=== PATIENT | female | born 1975 | race Hispanic/Latino ===

== ENCOUNTER 2017-06-02 10:09 | Observation (INO) | payer OTHER ==
[2017-06-02] VITALS (20 sets, daily range): BP systolic 110–130; BP diastolic 59–76
[~2017-06-02] VITALS: Ht 160 cm; Wt 83.5 kg
[~2017-06-02 10:09] MED LIST: CORTISPORIN OTI10 ML AD
--- NOTE | 2017-06-02 10:45 | NUR ---
PT ARRIVED ON UNIT AMBULATORY FROM DR. CHOWDHURY WITH ORDERS IN HAND FOR INDUCTION OF LABOR. SHE STATES THAT SHE HAS NO MEDICAL PROBLEMS. PN RECORDS ARE AVAILABLE. DATING IS 39 6/7 WK BY 9 WK U/S/. SHE IS 42 YEARS OLD AND HER LAST BABY WAS BORN IN 2004. SHE IS ACCOMPANIED BY HER TEEN DAUGTHER. PT UNDERSTANDS SOME IRISH BUT SPEAKS PRIMARILY ARMENIAN. PT ENCOURAGED TO ASK FOR DROP HAMMER SETTER UP NEEDED. SHE HAD A NEGATIVE QUAD SCREEN. REVIEW OF PN RECORD SHOWS THAT SHE IS O+ RUBELLA IMMUNE AND GBS NEGATIVE. SHE HAD U/S AT 20 WKS SHOWING LOW-LYING PLACENTA AND DR. CUI WILL BE CONSULTED THERE IS NO RECORD OF A LATER U/S. PT REPORTS THAT THERE HAS BEEN NO BLEEDING AT ANY TIME DURING THE . FETUS IS VERTEX, BALLOTABLE IN LOT POSITION BY MING'Sherita. DISCUSSED POSSIBILITY OF UNRIPE CERVIX AND THAT INDUCTION OF LABOR IS NOT ALWAYS IMMEDIATELY EFFECTIVE. PT AND DAUGHTER EXPRESS UNDERSTANDING.
--- NOTE | 2017-06-02 11:20 | NUR ---
PT HAS MULTIPLE VARICES IN LOWER EXTREMITIES AND VULVA. NONE ARE RED OR INFLAMMED. NO PAIN PER PT. KASIA'S NEGATIVE
[2017-06-02 11:22] LABS: URINE BILIRUBIN - DIPSTICK NEGATIVE (NEGATIVE); URINE BLOOD DIPSTICK NEGATIVE (NEGATIVE); URINE CLARITY CLEAR; URINE COLOR YELLOW; URINE GLUCOSE - DIPSTICK NEGATIVE (NEGATIVE); URINE KETONE NEGATIVE (NEGATIVE); URINE LEUK ESTERASE TRACE (NEGATIVE); URINE NITRITE - DIPSTICK NEGATIVE (Negative); URINE PROTEIN - DIPSTICK NEGATIVE (NEG-TRACE); URINE SPECIFIC GRAVITY 1.015; URINE UROBILINOGEN - DIPSTICK 0.2 E.U./dL (0.2)
[2017-06-02 11:38] LABS: BARBITURATES NEGATIVE (NEGATIVE); COCAINE NEGATIVE (NEGATIVE); METHADONE NEGATIVE (NEGATIVE); OXCYCODONE NEGATIVE (NEGATIVE); TETRAHYDROCANNABIONOL NEGATIVE (NEGATIVE); TRICYLIC ANTIDEPRESSANTS NEGATIVE (NEGATIVE)
--- NOTE | 2017-06-02 11:45 | NUR ---
PITOCIN STARTED AT 2 MU PER ORDERS AND AFTER PLAN OF CARE EXPLAINED TO PT AND UNDERSTANDING EXPRESSSED. NOVII WIRELESS MONITOR WORKING WELL SO PT WILL AMBULATE
--- NOTE | 2017-06-02 11:45 | NUR ---
PITOCIN BEGUN AT 2.0MU. WIRELESS NOVII WORKING WELL AND PT WISHES TO AMBULATE. ACUNA'S SCORE ONLY 5. AWARE
[2017-06-02 11:56] LABS: ALBUMIN 3.2 g/dL (3.2-5.0); ALKALINE PHOSPHATASE 118 u/l (38-126); ANION GAP 12 (6-22 (CALC)); BILIRUBIN, TOTAL 0.4 mg/dL (0.0-1.4); BUN 9 mg/dL (7-17); BUN/CREATININE RATIO 19 (12-20 (CALC)); CALCIUM 8.8 mg/dL (8.4-10.2); CARBON DIOXIDE 22 mmol/l (22-30); CHLORIDE 105 mmol/l (95-108); CREATININE 0.5 mg/dL (0.5-1.0); GFR > 60 ML/MIN (>=60 (CALC)); GFR FOR AFR.AMER. > 60 ML/MIN (>=60 (CALC)); GLUCOSE 90 mg/dL (65-105); POTASSIUM 4.3 mmol/l (3.5-5.1); SGOT/AST 19 u/l (14-36); SGPT/ALT 29 u/l (9-52); SODIUM 135 mmol/l (137-146); TOTAL PROTEIN 6.3 g/dL (6.3-8.2)
[2017-06-02 12:05] LABS: HEMATOCRIT 36.1 % (37.0-47.0); IMMATURE GRANULOCYTES 0.4 % (0.0-1.0); MEAN CELL VOLUME 84.1 fL CALC (80.0-100.0); MEAN CORPUSCULAR HGB CONC 33.2 g/L CALC (32.0-36.0); NEUT# 6.11 thou/uL (2.00-7.15); RED BLOOD COUNT 4.29 mill/uL (4.20-5.60); RED CELL DISTRI WIDTH 14.2 % (11.5-15.5)
--- NOTE | 2017-06-02 12:20 | NUR ---
WIRELESS MONITOR SKIPPING. FHT AUDIBLE AT 140. PT REQUESTS TO CONTINUE WIRELESS MONITOR. EXPLAINED THAT WE WILL HAVE TO HAVE IT RECORDING WITH USE OF PITOCIN
--- NOTE | 2017-06-02 12:29 | NUR ---
PT DISCUSSED EPIDURAL WITH Mo GAR RN IN EGYPTIAN SHE HAS HAD FOR HER OTHER DELIVERIES. EXPLAINED TO PT THAT ANESTHESIA WILL BE ALERTED BUT EPIDURAL NOT RECOMMENDED UNTIL ACTIVE LABOR AND WHEN SHE IS ADMITTED.
--- NOTE | 2017-06-02 12:42 | NUR ---
WIRELESS NOVII NOT PICKING UP. PT CURRENTLY IN CHAIR WITH EXTERNAL TRANSDUCER PICKING UP FHT WITHOUT DIFFICULTY. PT REQUESTS TO USE WIRELESS AGAIN IF POSSIBLE SO PADS REMAIN ON. PT IS AWARE THAT SOMETIMES THE PATCHES CAUSE SOME SKIN IRRITATION.
--- NOTE | 2017-06-02 13:10 | NUR ---
U/S DONE FOR PLACENTAL LOCATION. PLACENTA FUNDAL, NOT LOW LYING. FETUS VERTEX
--- NOTE | 2017-06-02 13:54 | NUR ---
DR. CUI HERE AND SPOKE WITH PT. HE PLANS TO REEVALATE AT 1800 OR PRN AND PT IS AWARE INDUCTION MY BE INEFFECTIVE IF HER BODY IS NOT READY
--- NOTE | 2017-06-02 14:03 | NUR ---
PT VISITING WITH FAMILY AND WATCHING TV, NO SX OF DISTRESS. FEELS SOME CTX "LITTLE BIT" . PITOCIN AT 4.0 MU
--- NOTE | 2017-06-02 14:38 | NUR ---
PT DOZING THRU CONTRACTIONS, DAUGHTER AND AT BEDSIDE. PITOCIN AT 6.0 MU
--- NOTE | 2017-06-02 15:20 | NUR ---
PT OOB TO BATHROOM AND TO WALK AT HER REQUEST. WIRELESS MONITOR PICKING UP WELL. DAUGHTER AND WITH.
--- NOTE | 2017-06-02 15:46 | NUR ---
REPORT GIVEN TO DR. CUI. PT RESTING BETWEEN CONTRACTIONS. OOB TO VOID. AMBULATING WITHOUT DIFFICULTY
--- NOTE | 2017-06-02 16:46 | NUR ---
JAYMIEII WIRELESS NOT GETTING A GOOD SIGNAL. FHT 140 WITH DOPPLER. PT INSTRUCTED TO WALK IN HER ROOM INSTEAD OF HALLWAY. SIGNAL IMPROVED. AT 1643 THERE IS A QUESTIONABLE DECEL BUT POOR SIGNAL. DOPPLER FHT 138
--- NOTE | 2017-06-02 17:35 | NUR ---
DR. CUI HERE. STATES CERVIX IS SOFTER AND MORE ANTERIOR. PT WOULD LIKE TO CONTINUE PITOCIN. PITOCIN AT 10MU/MIN. DR. CUI STATES HE WILL REEVALUATE ABOUT 1999.
--- NOTE | 2017-06-02 17:53 | NUR ---
TOP PATCH NOT GETTING OPTIMAL SIGNAL. SKIN REPREPPED AND MICROPORE TAPE APPLIED. PT AMBULATING IN ROOM WITH GOOD SIGNAL.
--- NOTE | 2017-06-02 18:11 | NUR ---
REPORT PREPARED FOR ONCOMING SHIFT. PT WALKING SHORT DISTANCES FROM ROOM
--- NOTE | 2017-06-02 18:41 | NUR ---
REPORT GIVEN TO Jovani LEWIS RN AND Srikanth KOTHARI RN
--- NOTE | 2017-06-02 19:03 | NUR ---
PT RESTING IN ROCKING CHAIR, STATES SHE FEELS SOME UCS, RATING PAIN AT A 4/10. ENCOURAGED TO CALL WITH ANY NEEDS OR CONCERNS
--- NOTE | 2017-06-02 19:15 | NUR ---
INTRODUCED SELF TO PT. HEAD TO TOE ASSESSMENT COMPLETED- WNL EXCEPT +1 NON-PITTING EDEMA. PT RATES PAIN 5/10. PT DENIES ANY NEEDS AT THIS TIME. DAUGHTER AND SIGNIFICANT OTHER AT BEDSIDE AND SUPPORTIVE. ENCOURAGED TO CALL WITH NEEDS.
--- NOTE | 2017-06-02 20:03 | NUR ---
UP TO BR
--- NOTE | 2017-06-02 20:42 | NUR ---
DR. CUI AT BEDSIDE. SVE PERFORMED- NO CHANGE IN CERVIX AND POSTERIOR. PITOCIN STOPPED. PER DR. CUI ORDERS EFM MONTIOR FOR REACTIVE NST AFTER PITOCIN AND THEN DISCHARGE HOME. PT AGREES WITH PLAN OF CARE. SIGNIFICANT OTHER AT BEDSIDE AND SUPPORITVE.
[2017-06-02] MEDS ORDERED: PRENATAL1 TA1 PO (20:51)
--- NOTE | 2017-06-02 21:36 | NUR ---
PT STATES IS NOT FEELING CONTRACTIONS. RN NOTED MOSTLY IRRITABILITY W/ OCCASIONAL CONTRACTIONS. PT OOB TO CHANGE INTO PERSONAL CLOTHING PER PT REQUEST. DISCHARGE TEACHING REVIEWED VERBALLY WITH PT. PT AWARE TO RETURN IF CONTRACTONS INCREASE IN FREQUENCY AND STRENTH OR HAS RUPTURE OF MEMBRANES. PT VERBALIZED UNDERSTANDING. PT LEAVING WITH SIGNIFICANT OTHER AND DAUGHTER AT THIS TIME IN STABLE CONDITION. REMINDED TO GATHER ALL PERSONAL BELONGINGS. IV REMOVED WITH CATHETER INTACT. DRESSING APPLIED.
== END 2017-06-02 21:55 | disposition home or self-care (01) | DRG 782 ==
LOC: OB 10:09
PROC: 3E033VJ Introduction of Other Hormone into Peripheral Vein, Percutaneous Approach (ICD-10-PCS; principal; 2017-06-02)
DX: O22.13 Genital varices in pregnancy, third trimester (principal); O61.0 Failed medical induction of labor; O22.03 Varicose veins of lower extremity in pregnancy, third trimester; Z3A.40 40 weeks gestation of pregnancy
CPT/HCPCS: G0378

== ENCOUNTER 2017-06-04 04:39 | Inpatient (IN) | payer OTHER ==
[~2017-06-04] VITALS: Ht 160 cm; Wt 83.5 kg
[2017-06-04] VITALS (27 sets, daily range): BP systolic 83–138; BP diastolic 46–77
[~2017-06-04 04:39] MED LIST changes: +PRENATAL1 TA1 PO
[2017-06-04 04:57] LABS: URINE BLOOD DIPSTICK LARGE (NEGATIVE); URINE CLARITY CLEAR; URINE COLOR YELLOW; URINE GLUCOSE - DIPSTICK NEGATIVE (NEGATIVE); URINE LEUK ESTERASE NEGATIVE (NEGATIVE); URINE NITRITE - DIPSTICK NEGATIVE (Negative); URINE PROTEIN - DIPSTICK TRACE mg/dL (NEG-TRACE); URINE UROBILINOGEN - DIPSTICK 0.2 E.U./dL (0.2)
[2017-06-04 05:02] LABS: BARBITURATES NEGATIVE (NEGATIVE); COCAINE NEGATIVE (NEGATIVE); METHADONE NEGATIVE (NEGATIVE); OXCYCODONE NEGATIVE (NEGATIVE); TETRAHYDROCANNABIONOL NEGATIVE (NEGATIVE); TRICYLIC ANTIDEPRESSANTS NEGATIVE (NEGATIVE)
[2017-06-04 05:04] LABS: URINE BILIRUBIN - DIPSTICK NEGATIVE (NEGATIVE); URINE KETONE 154 mg/dL (NEGATIVE)
[2017-06-04 05:08] LABS: URINE SQUAMOUS EPITHELIAL CELL MODERATE EPI/hpf (0-FEW)
[2017-06-04 05:09] LABS: URINE BACTERIA FEW hpf
[2017-06-04 05:22] LABS: HEMATOCRIT 36.7 % (37.0-47.0); HEMOGLOBIN 12.2 g/dl (12.0-16.0); IMMATURE GRANULOCYTES 0.4 % (0.0-1.0); MEAN CORPUSCULAR HGB 27.6 pG CALC (26.0-32.0); MEAN CORPUSCULAR HGB CONC 33.2 g/L CALC (32.0-36.0); NEUT# 7.44 thou/uL (2.00-7.15); RED BLOOD COUNT 4.42 mill/uL (4.20-5.60); RED CELL DISTRI WIDTH 14.1 % (11.5-15.5)
[2017-06-04 10:06] LABS: ALBUMIN 2.8 g/dL (3.2-5.0); ALKALINE PHOSPHATASE 125 u/l (38-126); ANION GAP 10 (6-22 (CALC)); BILIRUBIN, TOTAL 0.5 mg/dL (0.0-1.4); BUN 6 mg/dL (7-17); BUN/CREATININE RATIO 13 (12-20 (CALC)); CALCIUM 8.3 mg/dL (8.4-10.2); CARBON DIOXIDE 21 mmol/l (22-30); CHLORIDE 108 mmol/l (95-108); CREATININE 0.4 mg/dL (0.5-1.0); GFR > 60 ML/MIN (>=60 (CALC)); GFR FOR AFR.AMER. > 60 ML/MIN (>=60 (CALC)); GLUCOSE 72 mg/dL (65-105); POTASSIUM 4.1 mmol/l (3.5-5.1); SGOT/AST 26 u/l (14-36); SGPT/ALT 23 u/l (9-52); SODIUM 135 mmol/l (137-146); TOTAL PROTEIN 5.8 g/dL (6.3-8.2)
[2017-06-05] VITALS (11 sets, daily range): BP systolic 98–125; BP diastolic 55–78
[2017-06-05 04:34] LABS: HEMATOCRIT 31.3 % (37.0-47.0); HEMOGLOBIN 10.2 g/dl (12.0-16.0); IMMATURE GRANULOCYTES 0.4 % (0.0-1.0); MEAN CELL VOLUME 84.4 fL CALC (80.0-100.0); MEAN CORPUSCULAR HGB 27.5 pG CALC (26.0-32.0); MEAN CORPUSCULAR HGB CONC 32.6 g/L CALC (32.0-36.0); NEUT# 10.97 thou/uL (2.00-7.15); RED BLOOD COUNT 3.71 mill/uL (4.20-5.60); RED CELL DISTRI WIDTH 14.1 % (11.5-15.5)
[2017-06-06 04:05] VITALS: BP 99/63
[2017-06-06 08:30] VITALS: BP 108/71
[2017-06-06] MEDS ORDERED: NORCO1 TA1 PO (10:40)
[2017-06-06] MEDS ORDERED: IBUPROFEN600 MG PO (10:41)
== END 2017-06-06 15:00 | disposition home or self-care (01) | DRG 767 ==
LOC: OBOP 04:39 → EDSTATUS 04:42 → OB 04:50 → OBOP 04:50 → OB 06:20
PROC: 10E0XZZ Delivery of Products of Conception, External Approach (ICD-10-PCS; principal; 2017-06-04)
PROC: 10907ZC Drainage of Amniotic Fluid, Therapeutic from Products of Conception, Via Natural or Artificial Opening (ICD-10-PCS; 2017-06-04)
PROC: 0HQ9XZZ Repair Perineum Skin, External Approach (ICD-10-PCS; 2017-06-04)
PROC: 0UB70ZZ Excision of Bilateral Fallopian Tubes, Open Approach (ICD-10-PCS; 2017-06-05)
DX: O22.13 Genital varices in pregnancy, third trimester (principal); O26.893 Other specified pregnancy related conditions, third trimester; K42.9 Umbilical hernia without obstruction or gangrene; O22.03 Varicose veins of lower extremity in pregnancy, third trimester; O76 Abnormality in fetal heart rate and rhythm complicating labor and delivery; O77.0 Labor and delivery complicated by meconium in amniotic fluid; O70.0 First degree perineal laceration during delivery; Z3A.40 40 weeks gestation of pregnancy; Z37.0 Single live birth
CPT/HCPCS: J2710